=== PATIENT | male | born 1970 ===

== ENCOUNTER 2017-01-31 02:25 | Emergency (ER) | payer SELFPAY ==
[2017-01-31 02:36] VITALS: TEMP 97.9; O2SAT 100
--- NOTE | 2017-01-31 02:53 | C.PDOC ---
History Of Present Illness 46 year old male presents to the ED with complaints of generalized pruritic rash beginning last night. Patient denies use of new products, medicines, or foods. Denies shortness of breath, lip, or throat swelling. Chief Complaint (Nursing): Abnormal Skin Integrity History Per: Patient History/Exam Limitations: no limitations Onset/Duration Of Symptoms: Days (1 day ) Current Symptoms Are (Timing): Still Present Quality Of Symptoms: Itching. denies: Swollen, Draining Recent travel outside of the [place]: No Past Medical History Reviewed: Historical Data, Nursing Documentation, Vital Signs Vital Signs: Last Vital Signs Temp 97.9 F 01/31/17 02:35 Pulse 68 01/31/17 03:55 Resp 20 01/31/17 03:55 BP 134/80 01/31/17 03:55 Pulse Ox 100 01/31/17 03:55 Family History: States: Unknown Family Hx - Social History Hx Alcohol Use: Yes Hx Substance Use: No Review Of Systems Constitutional: Negative for: Fever ENT: Negative for: Mouth Swelling, Throat Swelling Respiratory: Negative for: Cough, Shortness of Breath Skin: Positive for: Rash Physical Exam - Physical Exam Appears: Non-toxic, No Acute Distress Skin: Warm, Dry, Rash (generalized urticaria) Head: Atraumatic, Normacephalic Eye(s): bilateral: Normal Inspection, PERRL, EOMI Oral Mucosa: Moist Tongue: Normal Appearing, No Swelling Lips: Normal Appearing, No Swelling Throat: Normal, No Erythema, No Exudate Neck: Supple Chest: Symmetrical, No Deformity Cardiovascular: Rhythm Regular, No Murmur Respiratory: Normal Breath Sounds, No Rales, No Rhonchi, No Wheezing Neurological/Psych: Oriented x3 ED Course And Treatment O2 Sat by Pulse Oximetry: 100 (RA) Progress Note: Patient was given Benadryl, Prednisone, and Pepcid. On re- evaluation, patient notes he is feeling better and is ready to be discharged home. Disposition - Disposition Disposition: HOME/ ROUTINE Disposition Time: 03:44 Condition: STABLE Additional Instructions: Follow up with PMD within 1-2 days. Return to ED if feel worse. 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 - Scribe Statement The provider has reviewed the documentation as recorded by the Scribe Xiomy Nielson All medical record entries made by the Scribe were at my direction and personally dictated by me. I have reviewed the chart and agree that the record accurately reflects my personal performance of the history, physical exam, medical decision making, and the department course for this patient. I have also personally directed, reviewed, and agree with the discharge instructions and disposition.
[2017-01-31] MEDS ORDERED: DiphenhydrAMINE 50 mg/ml Inj IM STA (02:56)
[2017-01-31] MEDS ORDERED: DiphenhydrAMINE 50 mg/ml Inj ONE (03:00)
[2017-01-31 04:37] VITALS: BP 134/80; PULSE 68; RESP 20
== END 2017-01-31 03:55 | disposition home or self-care (01) ==
LOC: C.ER 02:25
DX: L50.0 Allergic urticaria (principal)
CPT/HCPCS: 96372; 99284; J1200